=== PATIENT | female | born 1990 | race Caucasian/White ===

== ENCOUNTER 2017-08-03 16:47 | Emergency (ER) | payer OTHER ==
--- NOTE | 2017-08-03 17:28 | PDOC ---
History of Present Illness - General History Source: Patient Exam Limitations: No Limitations - History of Present Illness Initial Comments: 08/03/17 18:18 The patient is a 26 year old female, , with no significant past medical history presents to the emergency department with concern about the current . The patient reports she was confirmed using an in home urine test. The patient reports she went to get an earlier today but the caretakers were unable to find the fetus and reports the fetus might be outside the uterus. The patient reports pain to the RLQ and below umbilical pain. Denies taking any medication for the pain.Denies any real symptoms of . Denies any vaginal discharge or bleeding. Denies any chest pain, SOB, nausea or vomiting. Denies any dysuria, hematuria or frequency or urgency to urinate. Denies any diarrhea or constipation. Allergies: None reported Surgical history: 2 . Last menstrual cycle: June 27, 2017. <Lizzette Linder - Last Filed: 08/03/17 18:18> <Katina Carr - Last Filed: 08/03/17 20:52> - General Chief Complaint: Pain, Acute Stated Complaint: PCP SENT Time Seen by Provider: 08/03/17 17:09 Past History <Lizzette Linder - Last Filed: 08/03/17 18:18> - Past Medical History Asthma: No Cancer: No Cardiac Disorders: No Diabetes: No HTN: No Seizures: No Thyroid Disease: No - Suicide/Smoking/Psychosocial Hx Smoking Status: No Smoking History: Never smoked Have you smoked in the past 12 months: No Number of Cigarettes Smoked Daily: 0 Hx Alcohol Use: No Drug/Substance Use Hx: No Hx Substance Use Treatment: No <Katina Carr - Last Filed: 08/03/17 20:52> - Past Medical History Allergies/Adverse Reactions: Allergies Allergy/AdvReac Type Severity Reaction Status Date / Time isoniazid Allergy Severe Rash Verified 08/03/17 17:33 Home Medications: Ambulatory Orders NK [No Known Home Medication] 08/03/17 Review of Systems - Review of Systems Able to Perform ROS?: Yes Comments:: 08/03/17 18:18 Absent: ear pain, no sore throat CARDIOVASCULAR: Absent: chest pain, no palpitations RESPIRATORY: Absent: cough, no SOB GI:(+) RLQ pain, back pain and below umbilical pain Absent: abdominal pain, no nausea, no vomiting, no constipation, no diarrhea GENITOURINARY: Denies vaginal bleeding. Absent: dysuria, no frequency, no hematuria MUSKULOSKELETAL: Absent: back pain, no arthralgia, no myalgia SKIN: Absent: rash NEURO: Absent: headache <Lizzette Linder - Last Filed: 08/03/17 18:18> *Physical Exam - Vital Signs Last Vital Signs Temp Pulse Resp BP Pulse Ox 98.3 F 109 H 18 104/58 99 08/03/17 17:00 08/03/17 17:00 08/03/17 17:00 08/03/17 17:00 08/03/17 17:00 - Physical Exam Comments: 08/03/17 18:18 GENERAL: Well-appearing, well-nourished. No apparent distress. HEENT: Normocephalic, atraumatic. PERRL, EOM intact. CARDIOVASCULAR: Normal S1, S2. Regular rate and rhythm. PULMONARY: Clear to auscultation bilaterally. ABDOMEN: (+) Mild tenderness to palpation on RLQ to the back. Mild pain to tenderness to super pubic pain. Soft, non-distended, non-tender. EXTREMITIES: Normal ROM in all four extremities. No gross deformities. SKIN: Warm, dry. No rash NEUROLOGICAL: No focal neurological deficits. <Lizzette Linder - Last Filed: 08/03/17 18:18> Medical Decision Making - Medical Decision Making 08/03/17 20:05 26-year-old female whose last menstrual cycle was in May had a Positive home test and went to have a therapeutic AB and had her first pelvic ultrasound done. There is no intrauterine and therefore she was sent to the emergency department for concern of ectopic 08/03/17 20:06 She denied any vaginal bleeding, nausea or vomiting. Beta-hCG 2 noted to be 3500 and transvaginal ultrasound was ordered <Katina Carr - Last Filed: 08/03/17 20:52> *DC/Admit/Observation/Transfer - Attestations Scribe Attestion: 08/03/17 18:19 Documentation prepared by Lizzette Linder, acting as medical translator for Katina Carr MD. <Lizzette Linder - Last Filed: 08/03/17 18:18> <BrunoKatina Shahla - Last Filed: 08/03/17 20:52> Diagnosis at time of Disposition: Qualifiers: Weeks of gestation: less than 8 weeks Qualified Code(s): Z3A.01 - Less than 8 weeks gestation of - Discharge Dispostion Disposition: HOME Condition at time of disposition: Stable - Patient Instructions Printed Discharge Instructions: DI for -- Discomforts and Remedies Additional Instructions: Your ultrasound showed a intrauterine gestational sac like structure in the lower uterine segment without evidence of pole or yolk sac suggestive of missed / in progress -you need to have repeat bhcg and ultrasound in 48 hours -bhcg 3500
[2017-08-03 17:34] VITALS: TEMP 98.3; BMI 23.9
[2017-08-03 20:57] VITALS: BP 103/70; PULSE 99
== END 2017-08-03 21:10 | disposition home or self-care (01) ==
LOC: JER 16:47
DX: O26.891 Other specified pregnancy related conditions, first trimester (principal); O02.1 Missed abortion; Z3A.01 Less than 8 weeks gestation of pregnancy
CPT/HCPCS: 36415; 76817-TC; 84702; 99282-25

== ENCOUNTER 2017-08-05 18:57 | Emergency (ER) | payer OTHER ==
--- NOTE | 2017-08-05 19:12 | PDOC ---
Rapid Medical Evaluation Time Seen by Provider: 08/05/17 19:07 Medical Evaluation: Allergies Allergy/AdvReac Type Severity Reaction Status Date / Time isoniazid Allergy Severe Rash Verified 08/05/17 19:08 08/05/17 19:11 I have performed a brief in-person evaluation of this patient. The patient presents with a chief complaint of: revisit for beta and u/s Pertinent physical exam findings: lower abd cramping, no bleeding I have ordered the following: CBC, Beta Hcg, TVUS The patient will proceed to the ED for further evaluation. Discharge Disposition - Diagnosis Abdominal cramping affecting - Referrals - Patient Instructions - Post Discharge Activity
[2017-08-05 19:13] VITALS: BP 119/69; PULSE 83; TEMP 98.8; BMI 23.9
[2017-08-05 19:41] LABS: BASO % 0.7 % (0-2.0); EOS % 3.1 % (0-4.5); HEMATOCRIT 36.2 % (32.4-45.2); HEMOGLOBIN 12.5 GM/dL (10.7-15.3); LYMPH % 28.2 % (8-40); MCH 32.6 pg (25.7-33.7); MCHC 34.5 g/dl (32.0-36.0); MEAN CELL VOLUME 94.7 fl (80-96); MEAN PLT VOLUME 7.4 fl (7.5-11.1); MONO % 5.8 % (3.8-10.2); NEUT % 62.2 % (42.8-82.8); PLATELET COUNT 304 K/MM3 (134-434); RBC 3.82 M/mm3 (3.60-5.2); RDW 12.5 % (11.6-15.6); WHITE BLOOD COUNT 8.6 K/mm3 (4.0-10.0)
--- NOTE | 2017-08-05 21:04 | PDOC ---
History of Present Illness - General History Source: Patient Exam Limitations: No Limitations - History of Present Illness Initial Comments: 08/05/17 21:09 The patient is a 26 year old female who is reportedly 3-4 weeks with no other significant PMH who presents to the emergency department with lower abdominal pain beginning approximately 3 days ago. The patient states she has been following this with her TOBACCO CURER. The patient denies vaginal bleeding or discharge. She denies dysuria or hematuria. She denies urinary frequency or urgency. The patient denies chest pain, shortness of breath, headache and dizziness. Denies fever, chills, nausea, vomit, diarrhea and constipation. Allergies: Isoniazid Past surgical history: x2. Social history: No reported cigarette, alcohol, or drug use. PCP: None reported. TOBACCO CURER: Dr. Mary Mendoza <Steven Graves - Last Filed: 08/05/17 21:09> - General History Source: Patient <Krzysztof Holden - Last Filed: 08/06/17 19:26> - General Chief Complaint: Pain, Acute Stated Complaint: FOLLOW UP Time Seen by Provider: 08/05/17 19:07 Past History <Steven Graves - Last Filed: 08/05/17 21:09> - Past Medical History Asthma: No Cancer: No Cardiac Disorders: No COPD: No Diabetes: No HTN: No Seizures: No Thyroid Disease: No Other medical history: DENIES. - Reproductive History (#): 4 Para: 3 - Suicide/Smoking/Psychosocial Hx Smoking Status: No Smoking History: Never smoked Have you smoked in the past 12 months: No Number of Cigarettes Smoked Daily: 0 Hx Alcohol Use: No Drug/Substance Use Hx: No Substance Use Type: None Hx Substance Use Treatment: No <Krzysztof Holden - Last Filed: 08/06/17 19:26> - Past Medical History Allergies/Adverse Reactions: Allergies Allergy/AdvReac Type Severity Reaction Status Date / Time isoniazid Allergy Severe Rash Verified 08/05/17 19:08 Home Medications: Ambulatory Orders NK [No Known Home Medication] 08/03/17 Review of Systems - Review of Systems Able to Perform ROS?: Yes Comments:: 08/05/17 21:09 CONSTITUTIONAL: Absent: fever, chills, diaphoresis, generalized weakness, malaise, loss of appetite HEENT: Absent: rhinorrhea, nasal congestion, throat pain, throat swelling, difficulty swallowing, mouth swelling, ear pain, eye pain, visual Changes CARDIOVASCULAR: Absent: chest pain, syncope, palpitations, irregular heart rate, lightheadedness , peripheral edema RESPIRATORY: Absent: cough, shortness of breath, dyspnea with exertion, orthopnea, wheezing, stridor, hemoptysis GASTROINTESTINAL: (+) Lower abdominal pain. Absent: abdominal distension, nausea, vomiting, diarrhea, constipation, melena, hematochezia GENITOURINARY: Absent: dysuria, frequency, urgency, hesitancy, hematuria, flank pain, genital pain MUSCULOSKELETAL: Absent: myalgia, arthralgia, joint swelling SKIN: Absent: rash, itching, pallor HEMATOLOGIC/IMMUNOLOGIC: Absent: easy bleeding, easy bruising, lymphadenopathy, frequent infections ENDOCRINE: Absent: unexplained weight gain, unexplained weight loss, heat intolerance, cold intolerance NEUROLOGIC: Absent: headache, focal weakness or paresthesias, dizziness, unsteady gait, seizure, mental status changes, bladder or bowel incontinence PSYCHIATRIC: Absent: anxiety, depression, suicidal or homicidal ideation, hallucinations. <Steven Graves - Last Filed: 08/05/17 21:09> *Physical Exam - Vital Signs Last Vital Signs Temp Pulse Resp BP Pulse Ox 98.8 F 83 19 119/69 100 08/05/17 19:08 08/05/17 19:08 08/05/17 19:08 08/05/17 19:08 08/05/17 19:08 - Physical Exam Comments: 08/05/17 21:10 GENERAL: Well developed, well nourished. Awake and alert. No acute distress. HEENT: Normocephalic, atraumatic. PERRLA, EOMI. No conjunctival pallor. Sclera are non- icteric. Moist mucous membranes. Oropharynx is clear. NECK: Supple. Full ROM. No JVD. Carotid pulses 2+ and symmetric, without bruits. No thyromegaly. No lymphadenopathy. CARDIOVASCULAR: Regular rate and rhythm. No murmurs, rubs, or gallops. Distal pulses are 2+ and symmetric. PULMONARY: No evidence of respiratory distress. Lungs clear to auscultation bilaterally. No wheezing, rales or rhonchi. ABDOMINAL: (+) Mild suprapubic tenderness Soft. Non-distended. No rebound or guarding. No organomegaly. Normoactive bowel sounds. MUSCULOSKELETAL Normal range of motion at all joints. No bony deformities or tenderness. No CVA tenderness. EXTREMITIES: No cyanosis. No clubbing. No edema. No calf tenderness. SKIN: Warm and dry. Normal capillary refill. No rashes. No jaundice. NEUROLOGICAL: Alert, awake, appropriate. Cranial nerves 2-12 intact. No deficits to light touch and temperature in face, upper extremities and lower extremities. No motor deficits in the in face, upper extremities and lower extremities. Normoreflexic in the upper and lower extremities. Normal speech. Toes are downgoing bilaterally. Gait is normal without ataxia. PSYCHIATRIC: Cooperative. Good eye contact. Appropriate mood and affect. <Steven Graves - Last Filed: 08/05/17 21:09> - Vital Signs Last Vital Signs Temp Pulse Resp BP Pulse Ox 98.8 F 83 19 119/69 100 08/05/17 19:08 08/05/17 19:08 08/05/17 19:08 08/05/17 19:08 08/05/17 19:08 <Krzysztof Holden - Last Filed: 08/06/17 19:26> ED Treatment Course - LABORATORY CBC & Chemistry Diagram: 08/05/17 19:26 - ADDITIONAL ORDERS Additional order review: Laboratory Results 08/05/17 19:26 Beta HCG, Quant 5764.1 08/05/17 19:26 RBC 3.82 MCV 94.7 MCHC 34.5 RDW 12.5 D MPV 7.4 L Neutrophils % 62.2 Lymphocytes % 28.2 D Monocytes % 5.8 Eosinophils % 3.1 Basophils % 0.7 <Steven Graves - Last Filed: 08/05/17 21:09> - LABORATORY CBC & Chemistry Diagram: 08/05/17 19:26 - ADDITIONAL ORDERS Additional order review: Laboratory Results 08/05/17 19:26 Beta HCG, Quant 5764.1 08/05/17 19:26 RBC 3.82 MCV 94.7 MCHC 34.5 RDW 12.5 D MPV 7.4 L Neutrophils % 62.2 Lymphocytes % 28.2 D Monocytes % 5.8 Eosinophils % 3.1 Basophils % 0.7 <Krzysztof Holden - Last Filed: 08/06/17 19:26> Medical Decision Making - Medical Decision Making 08/06/17 19:25 Dr. Holden: The scribe's documentation has been prepared under my direction and personally reviewed by me in its entirery. I confirm that the note above accurately reflects all work, treatment, procedures, and medical decision making performed by me. <Krzysztof Holden - Last Filed: 08/06/17 19:26> *DC/Admit/Observation/Transfer - Attestations Scribe Attestion: 08/05/17 21:10 Documentation prepared by Steven Graves, acting as medical lab technician for Krzysztof Holden DO. <Steven Graves - Last Filed: 08/05/17 21:09> - Discharge Dispostion Decision to Admit order: No <Krzysztof Holden - Last Filed: 08/06/17 19:26> Diagnosis at time of Disposition: Abdominal cramping affecting , Threatened - Discharge Dispostion Disposition: HOME Condition at time of disposition: Stable - Referrals Referrals: Jay Gallego MD [Staff Physician] - - Patient Instructions Printed Discharge Instructions: DI for Threatened Additional Instructions: Please follow up with your doctor for further evaluation of . Please have another US and blood hormone level drawn in two days. No heavy lifting. Have as much rest as you can. - Post Discharge Activity Forms/Work/School Notes: Back to Work
[2017-08-05] MEDS ORDERED: IBUPROFEN 600 MG TABLET (FP) PO ONE (21:13)
== END 2017-08-05 23:14 | disposition home or self-care (01) ==
LOC: JER 18:57
DX: O26.891 Other specified pregnancy related conditions, first trimester (principal); O20.0 Threatened abortion; Z3A.01 Less than 8 weeks gestation of pregnancy
CPT/HCPCS: 36415; 76817-TC; 84702; 85025; 99281-25

== ENCOUNTER 2018-06-18 12:05 | Inpatient (IN) | payer OTHER ==
[2018-06-18] MEDS ORDERED: ELECTROLYTE-148 SOLN 500 ML IV SCH (13:00)
[2018-06-18] MEDS ORDERED: CITRIC ACID/SODIUM CITRATE 30 ML UNIT-DOSE CUP PO ONE (13:00)
[2018-06-18 13:16] VITALS: BMI 25.7
[2018-06-18] MEDS ORDERED: ELECTROLYTE-148 SOLN 1,000 ML IV SCH (13:30)
[2018-06-18] MEDS ORDERED: morphine SULFATE/Preservative Free 0.5 MG/ML (1cc Syringe) ONE (15:23)
[2018-06-18] MEDS ORDERED: ceFAZolin SODIUM 1 GM VIAL ONE (15:23)
[2018-06-18] MEDS ORDERED: morphine SULFATE/Preservative Free 0.5 MG/ML (1cc Syringe) SPIN ONE (15:42)
[2018-06-18] MEDS ORDERED: PHENYLEPHRINE HCL 10 MG/1 ML SINGLE DOSE VIAL ONE (15:45)
[2018-06-18] MEDS ORDERED: OXYTOCIN 10 UNITS/ML VIAL ONE (16:07)
[2018-06-18] MEDS ORDERED: METHYLERGONOVINE MALEATE 0.2 MG/1 ML AMP IM PRN (16:29)
[2018-06-18] MEDS ORDERED: WITCH HAZEL 50% (TUCKS) 40 PAD/JAR PAD TP PRN (16:29)
[2018-06-18] MEDS ORDERED: BENZOCAINE 20% 57 GM BOTTLE TP PRN (16:29)
[2018-06-18] MEDS ORDERED: BENZOCAINE 28 GM HEMORRHOIDAL OINTMENT PR PRN (16:29)
[2018-06-18] MEDS ORDERED: diphenhydrAMINE HCL 25 MG CAPSULE (FP) PO PRN (16:29)
[2018-06-18] MEDS ORDERED: oxyCODONE HCL 5 MG TABLET PO PRN (16:29)
[2018-06-18] MEDS ORDERED: DEXTROSE 5%-LACTATED RINGERS 1,000 ML IV SCH (16:30)
[2018-06-18] MEDS ORDERED: ONDANSETRON 4 MG/2 ML VIAL IVPUSH PRN (16:41)
[2018-06-18] MEDS ORDERED: OXYTOCIN 20 UNITS in 0.9% NS 20 UNIT/1,000 ML INFUS.BAG IV ONE (17:27)
[2018-06-18] MEDS: OXYTOCIN 20 UNITS in 0.9% NS 20 UNIT/1,000 ML INFUS.BAG IV SCH (17:33)
[2018-06-18] MEDS: IBUPROFEN 800 MG/8 ML IJ IVPB PRN (19:31)
--- NOTE | 2018-06-18 21:09 | HP ---
Past Medical History - Primary Care Physician PCP:: Jay Gallego - Admission Chief Complaint: 39 weeks, previous c/s , request of c/s and BTL History of Present Illness: 27 yo f 0 1 3 , 39 weeks with 3 previous c/s request of repeat c/s and BTL , aware BTL are permanent,not reversible, has small failure risk and risks of ectopic, risks of c/s discussed History Source: Patient Limitations to Obtaining History: No Limitations - Past Medical History ...: 5 ...Para: 3 ...Term: 3 ...: 0 ...Spon : 0 ...Induced : 1 ...Multiple Gestation: 0 ...LMP: 09/15/17 ... Weeks Gestation by Dates: 39.3 ...EDC by Dates: 06/22/18 Heme/Onc: Yes: Anemia - Past Surgical History Past Surgical History: Yes: Hx Myomectomy: No Hx Transabdominal Cerclage: No - Smoking History Smoking history: Never smoked Have you smoked in the past 12 months: No Aproximately how many cigarettes per day: 0 - Alcohol/Substance Use Hx Alcohol Use: No - Social History Usual Living Arrangement: Yes: With Spouse History of Recent Travel: No Home Medications - Allergies Allergies/Adverse Reactions: Allergies Allergy/AdvReac Type Severity Reaction Status Date / Time isoniazid Allergy Severe Rash Verified 06/18/18 12:46 - Home Medications Home Medications: Ambulatory Orders Ferrous Sulfate [Feosol] 325 mg PO DAILY 05/01/18 Vitamins (Sjr) - 1 tab PO DAILY 05/01/18 Review of Systems - Review of Systems Constitutional: reports: No Symptoms Eyes: reports: No Symptoms HENT: reports: No Symptoms Neck: reports: No Symptoms Cardiovascular: reports: No Symptoms Respiratory: reports: No Symptoms Gastrointestinal: reports: No Symptoms Genitourinary: reports: No Symptoms Breasts: reports: No Symptoms Reported Musculoskeletal: reports: No Symptoms Integumentary: reports: No Symptoms Neurological: reports: No Symptoms Endocrine: reports: No Symptoms Hematology/Lymphatic: reports: No Symptoms Psychiatric: reports: No Symptoms Physical Exam - Maternity Vital Signs: Vital Signs Temperature 97.6 F 06/18/18 18:00 Pulse Rate 70 06/18/18 18:00 Respiratory Rate 18 06/18/18 18:50 Blood Pressure 114/73 06/18/18 18:00 O2 Sat by Pulse Oximetry (%) 100 06/18/18 17:30 Constitutional: Yes: Well Nourished, No Distress, Calm Eyes: Yes: WNL, Conjunctiva Clear, EOM Intact HENT: Yes: WNL, Atraumatic, Normocephalic Neck: Yes: WNL, Supple, Trachea Midline Cardiovascular: Yes: WNL, Regular Rate and Rhythm Breast(s): Yes: WNL - Abdominal Exam/OB Fundal Height: 40 Number of Fetuses: Single Presentation: Vertex Contractions: No Intensity: Unaware Monitor Mode: External Heart Rate Location: [facility] Category: I - Vaginal Exam/OB Vaginal Bleediing: No Dilatation (cm): closed Effacement (%): 0 Amniotic Membrane Status: Intact Presentation: Vertex/Position Station: -3 - Physical Exam Extremities: Yes: WNL Edema: Yes Edema: LLE: Trace, RLE: Trace Deep Tendon Reflex Grade: Normal +2 Psychiatric: Yes: WNL Hemorrhage Risk Assessment - Risk Factors Medium Risk Factors: Yes: Prior , uterine surgery,or multiple laparotomies Risk Score: 2 Risk Level: High Risk Problem List - Problems (1) with 39 completed weeks gestation Code(s): Z3A.39 - 39 WEEKS GESTATION OF (2) Previous section complicating Code(s): O34.219 - MATERNAL CARE FOR UNSP TYPE SCAR FROM PREVIOUS DEL (3) Sterilization Code(s): Z30.2 - ENCOUNTER FOR STERILIZATION (4) Admission for sterilization Code(s): Z30.2 - ENCOUNTER FOR STERILIZATION Assessment/Plan admit for repeat c/s, btl
[2018-06-19] MEDS: CEFAZOLIN 1 GM/D5W 1 GM/50 ML BAG IVPB SCH ×2 (00:07→08:58)
[2018-06-19] MEDS ORDERED: DEXTROSE 5%-LACTATED RINGERS 1,000 ML IV SCH (00:30)
[2018-06-19] MEDS: OXYTOCIN 20 UNITS in 0.9% NS 20 UNIT/1,000 ML INFUS.BAG IV SCH (02:22)
[2018-06-19] MEDS: IBUPROFEN 800 MG/8 ML IJ IVPB PRN (06:21)
[2018-06-19 06:56] LABS: BASO % 0.2 % (0-2.0); HEMATOCRIT 37.4 % (32.4-45.2); LYMPH % 9.6 % (8-40); MCHC 34.8 g/dl (32.0-36.0); MEAN CELL VOLUME 94.9 fl (80-96); MEAN PLT VOLUME 8.1 fl (7.5-11.1); MONO % 5.2 % (3.8-10.2); PLATELET COUNT 180 K/MM3 (134-434); RBC 3.94 M/mm3 (3.60-5.2); RDW 15.4 % (11.6-15.6); WHITE BLOOD COUNT 11.2 K/mm3 (4.0-10.0)
[2018-06-19] MEDS: ENOXAPARIN NA (PORCINE) 40 MG/0.4 ML DISP.SYRIN SQ SCH (10:08)
--- NOTE | 2018-06-19 10:10 | PN ---
Progress Note (short form) - Note Progress Note: Post op day#1.S/P C Section under spinal anesthesia with duramorph uneventful.Patient stable and c/o little pain for which she is on medication.No any anesthesia related problem.Patient dc from the anesthesia care.
--- NOTE | 2018-06-19 10:12 | OP ---
DATE OF OPERATION: 06/18/2018 PREOPERATIVE DIAGNOSES: , 39.3-week gestation, 3 previous sections, request to have repeat section and tubal ligation. POSTOPERATIVE DIAGNOSES: , 39.3-week gestation, 3 previous sections, request to have repeat section and tubal ligation. PROCEDURE: Repeat low segment transverse section. SURGEON: Jay Gallego MD INTERACTIVE ART DIRECTOR: AN Villavicencio ANESTHESIA: Spinal. ANESTHESIOLOGIST: Eliseo Kapoor MD ESTIMATED BLOOD LOSS: 500 mL. OPERATION: Patient was taken to the operating room. Under adequate spinal anesthesia abdomen and perineum were prepped and draped. Pfannenstiel abdominal skin incision was made. Abdominal wall was cut layer by layer until peritoneum was exposed and incised. Upon entering the abdominal cavity lower uterine segment was identified and uterovesical fold of peritoneum established. Bladder was pushed down. Then with the low blade of the Angle resector in the pelvis a low transverse uterine incision was made. Incision extended laterally. Amniotic sac was entered. Clear fluid. Head delivered and nasopharynx was suctioned. Live baby was delivered without any difficulty. Placenta was delivered manually. Uterine cavity was cleaned of all remaining tissue. Uterine incision was closed in 2 layers, the 1st layer with 0 Biosyn continuous suture, the 2nd layer with 0 Biosyn imbricating the 1st layer. Bladder flap was closed with 0 Biosyn continuous suture. Both tubes and ovaries were checked and were normal. The right tube was grasped with Oma clamp. Right tube was doubly tied with 2-0 plain. Mesosalpinx was and portion of tube was removed and the endosalpinx was cauterized. The same procedure repeated for the opposite tube. All the lap count, sponge count and instrument count were correct. The peritoneum was closed with 0 Biosyn continuous suture. Muscles were brought together with interrupted suture of 0 Biosyn. Fascia was closed with 0 Biosyn continuous suture, subcutaneous fat interrupted suture of 0 Biosyn and the skin was closed with stapler. Patient tolerated procedure well, left the OR in good condition. Lillie [id number]
[2018-06-19] MEDS: IBUPROFEN 600 MG TABLET (FP) PO PRN ×3 (10:25→20:53)
[2018-06-19] MEDS: oxyCODONE HCL 5 MG TABLET PO PRN ×3 (10:25→20:52)
--- NOTE | 2018-06-19 15:07 | PN ---
Progress Note (short form) - Note Progress Note: pod 1 , ambulating, voids ok CBC, BMP 06/19/18 06:30 Last Vital Signs Temp Pulse Resp BP Pulse Ox 98.3 F 95 H 20 98/68 100 06/19/18 14:00 06/19/18 14:00 06/19/18 14:00 06/19/18 14:00 06/19/18 09:00 abdomen soft, no distension, no cva incision dry, clean no calf tenderness plan ambulate ,advance diet pain management Problem List - Problems (1) with 39 completed weeks gestation Code(s): Z3A.39 - 39 WEEKS GESTATION OF (2) Previous section complicating Code(s): O34.219 - MATERNAL CARE FOR UNSP TYPE SCAR FROM PREVIOUS DEL (3) Sterilization Code(s): Z30.2 - ENCOUNTER FOR STERILIZATION (4) Admission for sterilization Code(s): Z30.2 - ENCOUNTER FOR STERILIZATION
[2018-06-19] MEDS: SIMETHICONE 80 MG TAB.CHEW (FP) PO PRN ×2 (15:32→20:52)
[2018-06-19] MEDS ORDERED: BISACODYL 10 MG SUPP.RECT RC PRN (16:29)
[2018-06-20] MEDS: oxyCODONE HCL 5 MG TABLET PO PRN (03:10)
[2018-06-20] MEDS: SIMETHICONE 80 MG TAB.CHEW (FP) PO PRN (03:10)
[2018-06-20] MEDS: IBUPROFEN 600 MG TABLET (FP) PO PRN ×4 (03:11→22:20)
--- NOTE | 2018-06-20 09:19 | PN ---
Progress Note (short form) - Note Progress Note: pod 2 s/p repeat c/s btl no c/o , ambulating abdomen soft, no distension, no cva incision dry, clean no calf tenderness plan cbc in am ,ambulate Problem List - Problems (1) with 39 completed weeks gestation Code(s): Z3A.39 - 39 WEEKS GESTATION OF (2) Previous section complicating Code(s): O34.219 - MATERNAL CARE FOR UNSP TYPE SCAR FROM PREVIOUS DEL (3) Sterilization Code(s): Z30.2 - ENCOUNTER FOR STERILIZATION (4) Admission for sterilization Code(s): Z30.2 - ENCOUNTER FOR STERILIZATION
[2018-06-20] MEDS: ACETAMINOPHEN 325 MG TABLET (FP) PO PRN ×3 (10:20→22:19)
[2018-06-20] MEDS: ENOXAPARIN NA (PORCINE) 40 MG/0.4 ML DISP.SYRIN SQ SCH (10:30)
[2018-06-20] MEDS ORDERED: SENNOSIDES/DOCUSATE COMBO (SENNA PLUS) TABLET (UD) PO PRN (22:00)
[2018-06-21] MEDS: IBUPROFEN 600 MG TABLET (FP) PO PRN (04:57)
[2018-06-21] MEDS: ACETAMINOPHEN 325 MG TABLET (FP) PO PRN (04:57)
[2018-06-21] MEDS: SIMETHICONE 80 MG TAB.CHEW (FP) PO PRN (04:58)
[2018-06-21 08:32] LABS: BASO % 0.2 % (0-2.0); EOS % 1.9 % (0-4.5); HEMATOCRIT 33.7 % (32.4-45.2); LYMPH % 14.3 % (8-40); MCH 33.7 pg (25.7-33.7); MCHC 35.7 g/dl (32.0-36.0); MEAN CELL VOLUME 94.5 fl (80-96); MEAN PLT VOLUME 8.2 fl (7.5-11.1); MONO % 6.3 % (3.8-10.2); NEUT % 77.3 % (42.8-82.8); PLATELET COUNT 206 K/MM3 (134-434); RBC 3.56 M/mm3 (3.60-5.2); RDW 15.3 % (11.6-15.6); WHITE BLOOD COUNT 9.1 K/mm3 (4.0-10.0)
[2018-06-21 09:01] VITALS: BP 117/65; PULSE 85; TEMP 98.1
[2018-06-21] MEDS: ENOXAPARIN NA (PORCINE) 40 MG/0.4 ML DISP.SYRIN SQ SCH (09:59)
--- NOTE | 2018-06-25 12:46 | PATH ---
Surgical Pathology Report Patient Name: LUCRETIA SHELLEY [facility]. Rec. #: [id number] /Age/Gender: 1990 (Age: 27) / F Account: [id number] Location: [facility] OBS/COMMUNITY RELATIONS SPECIALIST Taken: 06/18/2018 Received: 06/21/2018 Reported: 06/25/2018 Physicians: Jay Gallego M.D. Specimen(s) Received A: PLACENTA B: PORTION OF LEFT FALLOPIAN TUBE C: PORTION OF RIGHT FALLOPIAN TUBE Clinical History , history of positive HPV Final Diagnosis A. PLACENTA, DELIVERY: FOCALLY DISRUPTED THIRD TRIMESTER PLACENTA WITH THREE VESSEL UMBILICAL CORD AND UNREMARKABLE PLACENTAL MEMBRANES. B. LEFT FALLOPIAN TUBE, PARTIAL SALPINGECTOMY: FULL LUMINAL PORTION OF UNREMARKABLE FALLOPIAN TUBE. C. RIGHT FALLOPIAN TUBE, SALPINGECTOMY: FULL LUMINAL PORTION OF UNREMARKABLE FALLOPIAN TUBE INCLUDING FIMBRIATED END. BENIGN PARATUBAL CYST PRESENT. Electronically Signed Bj Moe M.D. Gross Description A. The specimen is received fresh labeled placenta and is a 405 gram, 15.0 x 13.0 x 3.4 cm. placenta with attached membranes and umbilical cord. The attached membranes are horne, translucent with focal opacities and insert marginally. The umbilical cord measures 30 cm. in length and averages 1 cm. in diameter. The cord inserts centrally. No true knots or strictures are identified. Cut surface of the umbilical cord reveals 3 vessels. The surface is pina-blue with minimal fibrin deposition and appropriate caliber vessels. The maternal surface is red-brown and intact. Sectioning reveals red-brown, spongy parenchyma. No lesions are identified. Medical Support Specialist sections are submitted in three cassettes as follows: 1- membrane rolls and umbilical cord; 2-3- full thickness sections of placenta. B. Received in formalin labeled "portion of left fallopian tube," is a 1.5 cm in length portion of fallopian tube. No fimbria are present. The outer surface is horne-rodriguez and smooth. Sectioning reveals an unremarkable lumen. Medical Support Specialist sections are submitted in one cassette. C. Received in formalin labeled "portion of right fallopian tube," is a 2.5 cm in length fimbriated fallopian tube. The outer surface is horne pina with a 0.9 cm in greatest dimension paratubal cyst. Sectioning reveals an unremarkable lumen. Medical Support Specialist sections are submitted in 2 cassettes as follows: 1-fimbria; 2-cross sections of fallopian tube and paratubal cyst. 06/24/2018 [facility]06/24/2018
== END 2018-06-21 13:30 | disposition home or self-care (01) | DRG 540 ==
LOC: JLDR 12:05 → J3W 18:00
PROVIDERS: ADMIT Obstetrics & Gynecology; ATTEND Obstetrics & Gynecology
PROC: 10D00Z1 Extraction of Products of Conception, Low, Open Approach (ICD-10-PCS; principal; 2018-06-18)
PROC: 0U570ZZ Destruction of Bilateral Fallopian Tubes, Open Approach (ICD-10-PCS; 2018-06-18)
DX: O34.219 Maternal care for unspecified type scar from previous cesarean delivery (principal); Z3A.39 39 weeks gestation of pregnancy; Z37.0 Single live birth; Z30.2 Encounter for sterilization
CPT/HCPCS: 36415; 85025; 88302-TC; 88307-TC